=== PATIENT | female | born 1930 | race Caucasian/White ===

== ENCOUNTER 2016-10-15 05:08 | Day surgery (SDC) | payer MEDICARE, OTHER ==
[~2016-10-15 05:08] MED LIST: ASPI-110 PO; ATOR20TA15 PO; FISH500C PO; FORM1POW2 INH; HYDR25TA5 PO; LEVO50TA4 PO; OMEP20CA2 PO; OXYC-432 PO; PRESCAP5 PO; TIOT1AER2 INH; [UNRECOGNIZED DRUG - CODE] PO
[2016-10-15] MEDS ORDERED: CHLORHEXIDINE GLUCONATE 2 % 1 PACK (2 CLOTHS) TOPICAL PRN (05:45)
[2016-10-15] MEDS ORDERED: METOPROLOL TARTRATE 25 MG TAB PO PRN (05:45)
[2016-10-15] MEDS ORDERED: POVIDONE IODINE 5% (ANTISEPSIS KIT) 4 APPLICATIONS EACH NARE PRN (05:45)
[2016-10-15] MEDS ORDERED: INSULIN HUMAN REGULAR 1,000 UNITS/10 ML VIAL SQ PRN (05:45)
[2016-10-15] MEDS ORDERED: SODIUM CHLORID 0.9% 500 ML IV PRN (05:45)
[2016-10-15] MEDS ORDERED: LACTATED RINGER'S 1000 ML IV PRN (05:45)
[2016-10-15 05:51] LABS: BACTERIA, URINE RARE /hpf; BLOOD, URINE SMALL (NEG); COMMENT (UR) CULTURE INDICATED; CULTURE IF INDICATED CULTURE INDICATED; GLUCOSE,URINE NEG (NEG); KETONE, URINE NEG (NEG); MUCUS URINE FEW /lpf (OCC); NITRITE,URINE NEG (NEG); PH, URINE 6.5 (5.0-8.5); RENAL EPITHELIAL CELLS <1 /hpf; SQUAMOUS EPITHELIAL CELL URINE 1 /hpf (0-5); URINE COLOR LIGHT-YELLOW (YELLW/STRAW)
[2016-10-15] MEDS ORDERED: VANCOMYCIN 1000 MG/NS 250 ML (for <70 kg) IV SCH ×2 (06:00)
[2016-10-15] MEDS ORDERED: CHLORHEXIDINE GLUCONATE 4% SOLN 120 ML BTL TOPICAL SCH (06:00)
[2016-10-15] MEDS ORDERED: TRANEXAMIC ACID IV SCH (06:00)
[2016-10-15] MEDS ORDERED: POVIDONE IODINE 7.5% SCRUB 118 ML BOTTLE TOPICAL SCH (06:00)
[2016-10-15] MEDS ORDERED: SODIUM CHLORIDE 0.9% IV SCH (06:00)
[2016-10-15] MEDS ORDERED: ceFAZolin 2 GM PREMIX 50 ML IV SCH (06:00)
[2016-10-15] MEDS ORDERED: ROPIVACAINE PERI-ARTICULAR INJECTION. P-ARTICULR SCH ×5 (06:00)
[2016-10-15] MEDS ORDERED: TRANEXAMIC PERI-ARTICULAR 3,000 MG/NS 100 ML P-ARTICULR SCH ×2 (06:00)
[2016-10-15] MEDS ORDERED: DEXAMETHASONE SOD PHOS 20 MG/5 ML VIAL IV SCH (06:00)
[2016-10-15] MEDS ORDERED: GENTAMICIN SULFATE 80 MG/2 ML VIAL ONE (06:57)
== END 2016-10-15 07:12 | disposition home or self-care (01) ==
LOC: HSDI 05:08 → UNDOADMIN 05:08 → HSDC 05:08 → HSDI 05:08 → EDSTATUS 07:00 → UNDODISIN 07:12 → HSDC 07:12
PROVIDERS: ATTEND Orthopaedic Surgery Sports Medicine
DX: Z53.09 Procedure and treatment not carried out because of other contraindication (principal); M25.562 Pain in left knee; R68.89 Other general symptoms and signs
CPT/HCPCS: 81001; 87086; G0463; J1580; 99211

== ENCOUNTER 2017-02-15 05:11 | Inpatient (IN) | payer OTHER, MEDICARE ==
[~2017-02-15] VITALS: Ht 154.9 cm; Wt 65.0 kg
[~2017-02-15 05:11] MED LIST changes: +CALC1TAB87 PO; -FISH500C PO; +GABA600T PO; +GLUC15002 PO; +MULT-65 PO; -PRESCAP5 PO
[2017-02-15] MEDS ORDERED: INSULIN HUMAN REGULAR 1,000 UNITS/10 ML VIAL SQ PRN (05:45)
[2017-02-15] MEDS ORDERED: CHLORHEXIDINE GLUCONATE 2 % 1 PACK (2 CLOTHS) TOPICAL PRN (05:45)
[2017-02-15] MEDS ORDERED: POVIDONE IODINE 5% (ANTISEPSIS KIT) 4 APPLICATIONS EACH NARE PRN (05:45)
[2017-02-15] MEDS ORDERED: VANCOMYCIN 1000 MG/NS 250 ML (for <70 kg) IV SCH ×2 (05:45)
[2017-02-15] MEDS ORDERED: POVIDONE IODINE 7.5% SCRUB 118 ML BOTTLE TOPICAL SCH (05:45)
[2017-02-15] MEDS ORDERED: DEXAMETHASONE SOD PHOS 20 MG/5 ML VIAL IV SCH (05:45)
[2017-02-15] MEDS ORDERED: CHLORHEXIDINE GLUCONATE 4% SOLN 120 ML BTL TOPICAL SCH (05:45)
[2017-02-15] MEDS ORDERED: SODIUM CHLORID 0.9% 500 ML IV PRN (05:45)
[2017-02-15] MEDS ORDERED: LACTATED RINGER'S 1000 ML IV PRN (05:45)
[2017-02-15] MEDS ORDERED: METOPROLOL TARTRATE 25 MG TAB PO PRN (05:45)
[2017-02-15] MEDS ORDERED: ceFAZolin 2 GM PREMIX 50 ML IV SCH (05:45)
[2017-02-15] MEDS ORDERED: TRANEXAMIC PERI-ARTICULAR 3,000 MG/NS 100 ML P-ARTICULR SCH ×2 (06:00)
[2017-02-15] MEDS ORDERED: TRANEXAMIC ACID IV SCH (06:00)
[2017-02-15] MEDS ORDERED: SODIUM CHLORIDE 0.9% IV SCH (06:00)
[2017-02-15] MEDS ORDERED: ROPIVACAINE PERI-ARTICULAR INJECTION. P-ARTICULR SCH ×5 (06:00)
[2017-02-15] MEDS ORDERED: ONDANSETRON HCL 4 MG/2 ML VIAL IVP PRN (07:00)
[2017-02-15] MEDS ORDERED: diphenhydrAMINE HCL 50 MG/ML VIAL IV PRN (07:00)
[2017-02-15] MEDS ORDERED: BISACODYL 10 MG SUPP RECTAL PRN (07:00)
[2017-02-15] MEDS ORDERED: MORPHINE SULFATE 4 MG/ML INJ IV PUSH PRN (07:00)
[2017-02-15] MEDS ORDERED: ZOLPIDEM TARTRATE 5 MG TAB PO PRN (07:00)
[2017-02-15] MEDS ORDERED: SODIUM CHLORIDE 0.9% FLUSH 10 ML FLUSH IV FLUSH PRN (07:00)
[2017-02-15] MEDS ORDERED: HYDR-3288 PO (07:02)
[2017-02-15] MEDS ORDERED: ENOX30P SQ (07:03)
[2017-02-15] MEDS ORDERED: ASPI81CH3 CHEW (07:04)
[2017-02-15] MEDS ORDERED: GENTAMICIN SULFATE 80 MG/2 ML VIAL ONE (07:05)
[2017-02-15] MEDS ORDERED: ACETAMINOPHEN 1000 MG/100 ML 100 ML IV ONE (07:23)
[2017-02-15] MEDS: SODIUM CHLORIDE 0.9% FLUSH 10 ML FLUSH IV FLUSH SCH ×2 (09:00→20:40)
[2017-02-15] MEDS ORDERED: BUPIVACAINE LIPOSOME PF 1.3% 20 ML VIAL ONE (09:57)
[2017-02-15] MEDS ORDERED: Post-op Orders (for Pharmacy) MISC XX ONE (10:20)
[2017-02-15] MEDS ORDERED: DO NOT ADM ANY ANTICOAGULANT DRUGS PRN (10:25)
--- NOTE | 2017-02-15 10:25 | HHI.DCPOC ---
Discharge Care Plan Diagnosis: (1) Total knee replacement status Your Health Problems Are: Difficulty with ADL Goals to Promote Your Health * To prevent worsening of your condition and complications * To maintain your health at the optimal level Directions to Meet Your Goals Take your medications as prescribed Follow your dietary instruction Follow activity as directed Keep your appointments as scheduled Take your immunizations and boosters as scheduled If your symptoms worsen call your PCP, if no PCP go to Urgent Care Center or Emergency Room Smoking is Dangerous to Your Health. Avoid second hand smoke Call the 24-hour hour crisis hotline for domestic abuse at Paul Baxter Feb 15, 2017 10:24
--- NOTE | 2017-02-15 10:25 | HHI.FF ---
Face to Face Verification Diagnosis: (1) Total knee replacement status Physical Therapy Gait training, Safety evaluation, Transfer training, bed to chair Knee: Total knee, Protocol: Left, Full weight bearing Left LE Weight Bearing: WB as tolerated Nursing RN: 3 days/week x 2 weeks Nursing: Kourtney teaching, Dressing changes Dressing Changes: Daily dressing change I have seen patient Mini Busby on 02/15/17. My clinical findings support the need for the requested home health care services because: Limited ability to care for self High risk of falls I certify that my clinical findings support that this patient is homebound because: Post-op weakness Unsteady gait/balance Paul Baxter Feb 15, 2017 10:25
[2017-02-15] MEDS ORDERED: WALKER WHEELS/F1 MIS (10:27)
[2017-02-15] MEDS ORDERED: CPMMACHINE (10:27)
[2017-02-15] MEDS ORDERED: COMMODE 3-IN-11 MIS (10:27)
--- NOTE | 2017-02-15 10:28 | PD.ORT.PN ---
Subjective Subjective Remarks sx Saturday, L TKA Objective Vitals Vital Signs Date Time Temp Pulse Resp B/P (MAP) Pulse Ox O2 Delivery O2 Flow Rate FiO2 02/15/17 09:01 89 187/87 02/15/17 06:19 98.8 69 16 175/75 (108) 96 I/O 02/14/17 02/14/17 02/14/17 02/15/17 02/15/17 02/15/17 06:59 14:59 22:59 06:59 14:59 22:59 Intake Total 1250 ml Output Total 50 ml Balance 1200 ml Other 1250 ml Output Estimated Blood Loss 50 ml Assessment & Plan Ortho Post Op Day #: 0 Problem List: Assessment and Plan s/p L TKA wbat daily dressing changes lovenox d/c planning home vs snf rx in chart [id number] signed f/up dr. rao 2 weeks Paul Baxter Feb 15, 2017 10:28
[2017-02-15] MEDS: SODIUM CHLOR 0.9% 1000 ML INJ 1,000 ML IV SCH ×2 (11:00→21:14)
[2017-02-15] MEDS ORDERED: *ENALAPRILAT 1.25 MG/ML VIAL PERIprocedural Use ONLY ONE (11:01)
--- NOTE | 2017-02-15 11:20 | EKG ---
Date Performed: 02/15/2017 Time Performed: 06:42:13 PTAGE: 87 years EKG: Sinus rhythm WITH FIRST DEGREE AV BLOCK ABNORMAL ECG PREVIOUS TRACING : 10/29/2014 11.55 No significant change from previous tracing noted. DOCTOR: Neo Fish Interpretating Date/Time 02/15/2017 11:19:34
[2017-02-15] MEDS ORDERED: GLYCOPYRROLATE 0.2 MG/ML VIAL IV ONE (12:00)
[2017-02-15] MEDS ORDERED: LACTATED RINGER'S 1000 ML INJ 1,000 ML IV ONE (12:00)
--- NOTE | 2017-02-15 12:03 | RADRPT ---
EXAM DATE/TIME: 02/15/2017 10:39 [place] COMPARISON: No previous studies available for comparison. INDICATIONS : Post operative knee X-Ray. MEDICAL HISTORY : None. SURGICAL HISTORY : None. ENCOUNTER: Initial ACUITY: 1 day PAIN SCORE: 3/10 LOCATION: Left. FINDINGS: AP and lateral views of the knee following arthroplasty reveals a prosthesis in anatomic alignment. F racture is not appreciated. CONCLUSION: Status post total knee arthroplasty. Leighton Tejeda MD FACR Board Certified Radiologist. This report was verified electronically.
[2017-02-15] MEDS ORDERED: *morphine SULFATE 8 MG/ML PERIprocedure ONLY ONE (12:09)
[2017-02-15] MEDS ORDERED: ONDANSETRON HCL 4 MG/2 ML VIAL IV PUSH ONE (12:25)
[2017-02-15] MEDS ORDERED: MIDAZOLAM HCL 2 MG/2 ML VIAL IV ONE (12:25)
[2017-02-15] MEDS ORDERED: NEOSTIGMINE 3 MG/3 ML SYR IV ONE (12:25)
[2017-02-15] MEDS ORDERED: PROPOFOL 200 MG/20 ML AMP IV ONE (12:25)
[2017-02-15 14:05] VITALS: BP 119/56; PULSE 63; RESP 17; TEMP 96.2; O2SAT 94
[2017-02-15 16:00] VITALS: BP 120/84; PULSE 62; RESP 17; TEMP 96.6; O2SAT 95
[2017-02-15] MEDS: ACETAMINOPHEN/HYDROcodone 325 MG/7.5 MG TAB PO PRN (18:52)
--- NOTE | 2017-02-15 19:04 | MP ---
cc: TOM ESQUIVEL DATE OF SURGERY 02/15/2017 PREOPERATIVE DIAGNOSIS Left knee osteoarthritis POSTOPERATIVE DIAGNOSES Left knee osteoarthritis PROCEDURE Left total knee arthroplasty SURGEON Dr. Shahrzad Esquivel RETAIL ASSISTANT MANAGER MADHURI Butcher ANESTHESIA General with a femoral nerve adductor canal block. ESTIMATED BLOOD LOSS 50 mL. TOURNIQUET TIME 40 minutes at 250 mmHg COMPLICATIONS None. IMPLANTS USED DePuy attune size five posterior stabilized femoral component size four, rotating platform tibia baseplate, size 6 mm polyethylene tibial insert, size 35 patella. JUSTIFICATION The patient is an 87-year female with a history of severe end-stage degenerative osteoarthritis involving the left knee. She has severe disabling pain with standing, walking, ambulation and weight bearing activities and severe pain at rest. She has failed greater than three months of nonoperative conservative treatment to include medication therapy, injections, ambulatory assistive aids, and activity modification. The patient is not overweight. X-rays of the left knee reveals severe end-stage osteoarthritis, [id number] joint space narrowing, subchondral sclerosis, subchondral cyst osteophyte formation with varus deformity. The patient was counseled as risks, benefits and alternatives to a total knee arthroplasty. The risks were discussed which include but limited to anesthesia, bleeding, infection, damage to nerves, blood vessels, pain, stiffness, failure of component, blood clots, pulmonary embolism and even . The patient's pain is severe. She favored the benefits over the risks and she did wish to proceed with surgery. PROCEDURE IN DETAIL A written consent was obtained. The patient was identified by name, taken to operating room and placed supine on the operating table. General anesthesia was administered as well as 2 grams of IV Ancef and 1 gram of IV vancomycin. A well-padded tourniquet was placed on left thigh, left lower extremity prepped and draped using isopropyl alcohol, Hibiclens solution and Chloraprep solution. After a time-out was performed, an Esmarch bandage was used to exsanguinate the left lower extremity. A tourniquet was inflated to 250 mmHg. A large incision was made over the anterior aspect of the left knee and medial parapatellar arthrotomy was performed. The patella was everted. Patella resection guide was used to resect 9 mm of patella. The size 35 mm guide was placed. Three drill holes were placed. A 35 mm trial fit well. Attention was turned to the femur where an intramedullary guide was placed and the distal femoral guide was set to remove 10 mm of distal femur, 5 degrees off the anatomic valgus axis alignment. Oscillating saw was used to perform the distal femoral cut. Attention was turned to the tibia where an extramedullary tibial guide was set to remove 5 mm off the lowest portion of medial tibial plateau. The tibia guide was pinned in place and tibia cut was performed. A 5 mm spacer block showed full extension. Attention was turned back to the femur. AP sizing block measured a size five. The anterior reference 33 external rotation guide was used to pin a size five block [address]. The anterior posterior chamfer cuts were performed. A size five PCL box guide was pinned in place. PCL was boxed in with an oscillating saw. The medial lateral meniscus remnants were removed as well as bone and soft tissue debris from posterior portion of the knee. A size four tibia base was pinned in place. Tibia was drilled and punched. Trial components were evaluated and final components cemented in place. Current components showed full extension at 0 degrees, flexion 140, no evidence of tibial lift-off. Varus-valgus balance appeared appropriate and symmetric and the patella was noted to track centrally. Tourniquet was deflated. Bovie cautery was used for hemostasis. The arthrotomy incision was closed with #1 Vicryl suture.. subcutaneous layer with 2-0 Vicryl suture. Skin was closed with Dermabond. Sterile dressing applied. The patient tolerated procedure well. No intraoperative complications noted. Russell Baxter physician insurance underwriting assistant certified was present during that the entire procedure to include patient positioning and the procedure itself. The medical necessity of a physician insurance underwriting assistant was indicated in this case due to the complexity of t he procedure. He assisted with appropriate manipulation of the leg and also traction of muscle, tendon, bone and neurovascular structures. He assisted with preparation of bone, also implantation of the prosthetic __. MD MATIAS Gairbay/ /9:54 AM /6:45 PM
[2017-02-15 20:05] VITALS: BP 139/64; PULSE 68; RESP 17; TEMP 97; O2SAT 95
[2017-02-15] MEDS: ENOXAPARIN SODIUM 30 MG/0.3 ML SYRINGE SQ SCH (22:34)
--- NOTE | 2017-02-15 22:40 | PD.CONS ---
HPI Service [facility] . Consult Requested By Dr. Garcia . Reason for Consult Medical management of COPD and hypertension . Primary Care Physician Kevin Quevedo MD . Diagnoses: (1) COPD (chronic obstructive pulmonary disease) (2) Hypertension (3) Total knee replacement status History of Present Illness Ms. Busby is a very pleasant 87-year-old female with a history of COPD, hypertension, osteoarthritis, Reyes's esophagus, gastroesophageal reflux disease, and hyperlipidemia who presented to the hospital for elective left total knee arthroplasty by Dr. Garcia on 02/15/2017. The patient reports being severe, throbbing left knee pain for the past year that has become progressively worsened despite outpatient treatment. She is seen in her hospital room on evening of operation. She denies any shortness of breath and states that her pain is currently well managed on the current regimen of analgesics. She denies any recent fever, chills, illness, nausea, vomiting, diarrhea, chest pain, or dysuria. Review of Systems Except as stated in HPI: all other systems reviewed are Neg Past Family Social History Allergies: Coded Allergies: No Known Allergies (Verified , 02/15/17) Past Medical History Left knee osteoarthritis COPD - follows with Dr. Camacho as an outpatient Reyes's esophagus Gastroesophageal reflux disease Hypertension Bilateral cataracts Hyperlipidemia Osteoarthritis . Past Surgical History Left hip VANI a 10/30/[address] Denise Left rotator cuff repair . Reported Medications Reported Meds & Active Scripts Active Aspirin 81 Low Dose (Aspirin) 81 Mg Chew 81 Mg CHEW BID Lovenox Inj (Enoxaparin Sodium) 30 Mg/0.3 Ml Syr 30 Mg SQ DAILY Mutual (Hydrocodone-Acetaminophen) 7.5-325 mg Tab 1-2 Tab PO Q6H PRN Reported Multi-Vitamin Daily (Multiple Vitamin) 1 Tab Tab 1 Tab PO DAILY Calcium 600 with Vitamin D (Calcium Carbonate-Cholecalciferol) 600-400 mg-Unit Tab 1 Tab PO DAILY Glucosamine 1500 Complex (Benyvopucxz-Yjhnzbdokhr-Wzq C-) 500 Mg-400 Mg Cap 3 Tab PO DAILY Gabapentin 600 Mg Tab 600 Mg PO BID Formoterol Fumarate Dihydrate 1 Pow Pow 12 Mcg INH DAILY Oxycodone-Acetaminophen 5-325 mg Tab 1 Tab PO TID PRN Spiriva Respimat Inh (Tiotropium Inh) 1.25 Mcg/Act Aero 1 Puff INH DAILY 1.25 mcg = 1 inhalation Atorvastatin (Atorvastatin Calcium) 20 Mg Tab 20 Mg PO DAILY Levothyroxine (Levothyroxine Sodium) 50 Mcg Tab 50 Mcg PO DAILY Omeprazole 20 Mg Cap 1 Cap PO DAILY Aspirin 81 (Aspirin) 81 Mg Tabdr 81 Mg PO DAILY Hydrochlorothiazide 25 Mg Tab 25 Mg PO DAILY Taztia Xt (Diltiazem ER 24 HR) 120 Mg Caper 120 Mg PO DAILY . Active Ordered Medications Current Medications Dexamethasone Sodium Phosphate (Decadron Inj) 10 mg METHODS STUDY ANALYST IV Last administered on 02/15/17 06:25; Start 02/15/17 at 05:45; Stop 02/15/17 at 18:00; Status DC Povidone Iodine (Betadine 7.5% Scrub) 1 applic ONCE TOPICAL Last administered on 02/15/17 06:00; Start 02/15/17 at 05:45; Stop 02/18/17 at 05:44 Chlorhexidine Gluconate (Hibiclens 4% Top Soln) 1 applic ONCE TOPICAL ; Start at 05:45; Stop 02/18/17 at 05:44 Cefazolin Sodium/ Dextrose 50 ml @ 100 mls/hr METHODS STUDY ANALYST IV Last administered on 02/15/17 07:40; Start 02/15/17 at 05:45; Stop 02/15/17 at 10:59; Status DC Vancomycin HCl 1000 mg/Sodium Chloride 250 ml @ 250 mls/hr METHODS STUDY ANALYST IV Last administered on 02/15/17 07:40; Start 02/15/17 at 05:45; Stop 02/18/17 at 05:44 Tranexamic Acid 942 mg/Sodium Chloride 109.42 ml @ 200 mls/ hr ONCE IV Last administered on 02/15/17 08:45; Start 02/15/17 at 06:00; Stop 02/15/17 at 12:00; Status DC Ropivacaine 24.63 ml/Ketorolac Tromethamine 30 mg/Epinephrine HCl 0.5 mg/ Clonidine 80 mcg/ Sodium Chloride 100 ml @ 200 mls/hr ONCE P-ARTICULR Last administered on 02/15/17 09:01; Start 02/15/17 at 06:00; Stop 02/15/17 at 12:00; Status DC Tranexamic Acid 3000 mg/Sodium Chloride 130 ml @ 260 mls/hr ONCE P-ARTICULR Last administered on 02/15/17 09:01; Start 02/15/17 at 06:00; Stop 02/15/17 at 12: 00; Status DC Lactated Ringer's 1,000 ml @ 30 mls/hr Q24H PRN IV SEE LABEL COMMENTS Last administered on 02/15/17 06:31; Start 02/15/17 at 05:45; Stop 02/18/17 at 05:44 Sodium Chloride 500 ml @ 30 mls/hr [id number] PRN IV SEE LABEL COMMENTS; Start 02/15/17 at 05:45; Stop 02/18/17 at 05:44 Metoprolol Tartrate (Lopressor) 25 mg METHODS STUDY ANALYST PRN PO SEE LABEL COMMENTS; Start 02/15/17 at 05:45; Stop 02/18/17 at 05:44 Povidone Iodine (Betadine 5% Antisepsis Kit) 1 applic METHODS STUDY ANALYST PRN EACH NARE SEE LABEL COMMENTS Last administered on 02/15/17 06:00; Start 02/15/17 at 05:45; Stop 02/18/17 at 05:44 Chlorhexidine Gluconate (Chlorhexidine 2% Cloth) 3 pack METHODS STUDY ANALYST PRN TOPICAL SEE LABEL COMMENTS Last administered on 02/15/17 06:10; Start 02/15/17 at 05:45; Stop 02/18/17 at 05:44 Insulin Human Regular (NovoLIN R INJ) See Protocol Table ... METHODS STUDY ANALYST PRN SQ SEE PROTOCOL TABLE; Start 02/15/17 at 05:45; Stop 02/18/17 at 05:44 Sodium Chloride 1,000 ml @ 100 mls/hr Q10H IV Last administered on 02/15/17 11 :00; Start 02/15/17 at 11:00 Sodium Chloride (NS Flush) 2 ml UNSCH PRN IV FLUSH FLUSH AFTER USING IV ACCESS ; Start 02/15/17 at 07:00 Sodium Chloride (NS Flush) 2 ml BID IV FLUSH ; Start 02/15/17 at 09:00 Cefazolin Sodium 1000 mg/Sodium Chloride 100 ml @ 200 mls/hr Q6H IV Last administered on 02/15/17 20:40; Start 02/15/17 at 14:00; Stop 02/16/17 at 02:29 Miscellaneous Information (Post-op Orders (for Pharmacy)) STAT ONCE XX ; Start 02/15/17 at 10:20; Stop 02/15/17 at 10:55; Status DC Enoxaparin Sodium (Lovenox Inj) 30 mg Q24H SQ Last administered on 02/15/17 22: 34; Start 02/15/17 at 22:00 Morphine Sulfate (Morphine Inj) 3 mg Q3H PRN IV PUSH Pain >7 when off TELEPHONE OPERATOR CHIEF Last administered on 02/15/17 15:09; Start 02/15/17 at 07:00 Acetaminophen/ Hydrocodone Bitart (Mutual 7.5-325 Mg) 1 tab Q4H PRN PO PAIN LESS THAN 5 ON SCALE Last administered on 02/15/17 18:52; Start 02/15/17 at 07:00 Acetaminophen/ Hydrocodone Bitart (Mutual 7.5-325 Mg) 2 tab Q4H PRN PO PAIN SCALE 5 TO 10; Start 02/15/17 at 07:00 Multivitamins/ Minerals Therapeutic (Theragran M Tab) 1 tab BID PO ; Start at 21:00; Stop 04/17/17 at 20:59 Ondansetron HCl (Zofran Inj) 4 mg Q6H PRN IVP NAUSEA OR VOMITING; Start at 07:00 Docusate Sodium (Colace) 100 mg BID PO ; Start 02/16/17 at 21:00 Zolpidem Tartrate (Ambien) 5 mg HS PRN PO SLEEP; Start 02/15/17 at 07:00 Bisacodyl (Dulcolax Supp) 10 mg DAILY PRN RECTAL CONSTIPATION; Start 02/15/17 at 07:00 Diphenhydramine HCl (Benadryl Inj) 25 mg Q6H PRN IV ITCHING; Start 02/15/17 at 07:00 Gentamicin Sulfate (Gentamicin Inj) 240 mg STK-MED ONCE .ROUTE Last administered on 02/15/17 09:01; Start 02/15/17 at 07:05; Stop 02/15/17 at 07:06; Status DC Acetaminophen 100 ml @ As Directed STK-MED ONCE IV ; Start 02/15/17 at 07:23; Stop 02/15/17 at 07:24; Status DC Enalaprilat (*VASOTEC INJ PERIprocedural Use ONLY) 1.25 mg STK-MED ONCE .ROUTE Last administered on 02/15/17t 11:01; Start 02/15/17 at 11:01; Stop 02/15/17 at 11: 02; Status DC Morphine Sulfate (*morphine INJ PERIprocedure ONLY) 8 mg STK-MED ONCE .ROUTE Last administered on 02/15/17 12:07; Start 02/15/17 at 12:09; Stop 02/15/17 at 12: 10; Status DC Miscellaneous Information ALL NURSING DEPARTME... UNSCH PRN .XX SEE LABEL COMMENTS; Start 02/15/17 at 10:25; Stop 02/16/17 at 10:24 Albuterol/ Ipratropium (Duoneb Neb) 1 ampule Q4HR NEB PRN NEB WHEEZING/SOB; Start 02/16/17 at 00:00 . Family History Father with CVA and age 88 Mother age 66 of unknown illness . Social History Tobacco: Quit 35 years ago after smoking one quarter pack per day for 40 years Alcohol: Denies . Physical Exam Vital Signs Vital Signs Date Time Temp Pulse Resp B/P (MAP) Pulse Ox O2 Delivery O2 Flow Rate FiO2 02/15/17 20:05 97.0 68 17 139/64 (89) 95 02/15/17 16:00 96.6 62 17 120/84 (96) 95 02/15/17 14:05 96.2 63 17 119/56 (77) 94 02/15/17 13:25 97.5 62 16 134/65 (88) 95 Nasal Cannula 2 02/15/17 13:00 62 16 133/62 (85) 95 Nasal Cannula 2 02/15/17 12:30 63 16 141/68 (92) 95 Nasal Cannula 2 02/15/17 12:26 14 02/15/17 12:00 62 16 150/69 (96) 94 Nasal Cannula 2 02/15/17 11:45 61 15 158/68 (98) 94 Nasal Cannula 2 02/15/17 11:30 62 15 160/69 (99) 93 Nasal Cannula 2 02/15/17 11:15 60 15 162/71 (101) 93 Nasal Cannula 2 02/15/17 11:00 63 15 181/83 (115) 94 Nasal Cannula 2 02/15/17 10:45 62 15 176/80 (112) 94 Nasal Cannula 2 02/15/17 10:30 63 15 172/73 (106) 100 Nasal Cannula 3 02/15/17 10:25 97.6 64 20 169/72 (104) 99 Nasal Cannula 3 02/15/17 09:01 89 187/87 02/15/17 06:19 98.8 69 16 175/75 (108) 96 Physical Exam GENERAL: This is a pleasant well-nourished, well-developed patient, in no apparent distress. SKIN: No rashes, ecchymoses or lesions. Cool and dry. HEAD: Atraumatic. Normocephalic. EYES: No scleral icterus. No injection or drainage. ENT: Nose without bleeding, purulent drainage. NECK: Trachea midline. No JVD. CARDIOVASCULAR: Regular rate and rhythm without murmurs, gallops, or rubs. RESPIRATORY: Clear to auscultation. Breath sounds diminished at bases but equal bilaterally. No wheezes, rales, or rhonchi. GASTROINTESTINAL: Abdomen soft, non-tender, nondistended. No guarding. MUSCULOSKELETAL: Extremities without clubbing, cyanosis, or edema. SCDs in place. NEUROLOGICAL: Awake and alert. Motor and sensory grossly within normal limits. Normal speech. . Assessment and Plan Problem List: (1) COPD (chronic obstructive pulmonary disease) ICD Code: J44.9 - Chronic obstructive pulmonary disease, unspecified Status: Chronic (2) Hypertension ICD Code: I10 - Essential (primary) hypertension Status: Chronic (3) Total knee replacement status ICD Code: Z96.659 - Presence of unspecified artificial knee joint (4) GERD (gastroesophageal reflux disease) ICD Code: K21.9 - Gastro-esophageal reflux disease without esophagitis Status: Chronic (5) Hyperlipidemia ICD Code: E78.5 - Hyperlipidemia, unspecified Status: Chronic Assessment and Plan 87y/o s/p L TKA for left knee osteoarthritis: COPD - Resume home medications - will add Duo nebulizers every 4 hours when necessary for shortness of breath/ wheezing - Incentive spirometry to prevent atelectasis/pneumonia - supplemental oxygen titrated to maintain oxygen saturation > 92% - If any significant respiratory decompensation, consider consulting patient's forensic identification specialist Dr. Camacho Hypertension - Resume home medications - Monitor trends in blood pressure readings and adjust therapy if needed Hyperlipidemia - Resume home medications GERD - resume home medications Status post left total knee arthroplasty - Management per Dr. Garcia - Analgesic regimen effective per patient DVT prophylaxis - Bilateral SCDs - Lovenox 30 mg every 24 hours subcutaneously . Discussed Condition With patient and RN Problem Qualifiers (1) Total knee replacement status: Qualified Codes: Z96.652 - Presence of left artificial knee joint Suri Goodrich Feb 15, 2017 22:40
[2017-02-16] VITALS (7 sets, daily range): BP systolic 146–179; BP diastolic 65–75; PULSE 62–81; RESP 16–20; TEMP 95.6–99; O2SAT 92–96
[2017-02-16] MEDS ORDERED: RESP: ALBUTEROL 2.5 MG/IPRATROPIUM 0.5 MG NEB (PRN) NEB
[2017-02-16] MEDS: GABAPENTIN 300 MG CAP PO SCH ×3 (01:25→19:36)
[2017-02-16] MEDS: ACETAMINOPHEN/HYDROcodone 325 MG/7.5 MG TAB PO PRN ×5 (01:26→19:40)
[2017-02-16] MEDS: LEVOTHYROXINE SODIUM 50 MCG TAB PO SCH (05:53)
[2017-02-16] MEDS ORDERED: [UNRECOGNIZED DRUG - OTHER] INH SCH (09:00)
[2017-02-16] MEDS: SODIUM CHLORIDE 0.9% FLUSH 10 ML FLUSH IV FLUSH SCH ×2 (09:00→19:42)
--- NOTE | 2017-02-16 09:04 | HHI.PR ---
Subjective Remarks Complaints of constipation. No n/v. No fever or chills. Pain is controlled by meds. No sob or wheezing. No cough. Objective Vitals Vital Signs Date Time Temp Pulse Resp B/P (MAP) Pulse Ox O2 Delivery O2 Flow Rate FiO2 02/16/17 04:00 97.6 64 16 150/65 (93) 96 02/16/17 00:00 97.3 62 16 146/67 (93) 94 02/15/17 20:05 97.0 68 17 139/64 (89) 95 02/15/17 16:00 96.6 62 17 120/84 (96) 95 02/15/17 14:05 96.2 63 17 119/56 (77) 94 02/15/17 13:25 97.5 62 16 134/65 (88) 95 Nasal Cannula 2 02/15/17 13:00 62 16 133/62 (85) 95 Nasal Cannula 2 02/15/17 12:30 63 16 141/68 (92) 95 Nasal Cannula 2 02/15/17 12:26 14 02/15/17 12:00 62 16 150/69 (96) 94 Nasal Cannula 2 02/15/17 11:45 61 15 158/68 (98) 94 Nasal Cannula 2 02/15/17 11:30 62 15 160/69 (99) 93 Nasal Cannula 2 02/15/17 11:15 60 15 162/71 (101) 93 Nasal Cannula 2 02/15/17 11:00 63 15 181/83 (115) 94 Nasal Cannula 2 02/15/17 10:45 62 15 176/80 (112) 94 Nasal Cannula 2 02/15/17 10:30 63 15 172/73 (106) 100 Nasal Cannula 3 02/15/17 10:25 97.6 64 20 169/72 (104) 99 Nasal Cannula 3 I/O 02/15/17 02/15/17 02/15/17 02/16/17 02/16/17 02/16/17 07:00 15:00 23:00 07:00 15:00 23:00 Intake Total 1730 ml 1294 ml 480 ml Output Total 525 ml 300 ml 600 ml Balance 1205 ml 994 ml -120 ml Intake Oral 480 ml 600 ml 480 ml IV Total 694 ml Other 1250 ml Output Urine Total 475 ml 300 ml 600 ml Estimated Blood Loss 50 ml # Voids 0 # Bowel Movements 0 Imaging Last Impressions Knee X-Ray 02/15/17 0700 Signed Impressions: Service Date/Time: Wednesday, February 15, 2017 10:39 - CONCLUSION: Status post total knee arthroplasty. Leighton Tejeda MD Objective Remarks GENERAL: This is a pleasant well-nourished, well-developed patient, in no apparent distress. SKIN: No rashes, ecchymoses or lesions. Cool and dry. HEAD: Atraumatic. Normocephalic. EYES: No scleral icterus. No injection or drainage. ENT: Nose without bleeding, purulent drainage. NECK: Trachea midline. No JVD. CARDIOVASCULAR: Regular rate and rhythm without murmurs, gallops, or rubs. RESPIRATORY: Clear to auscultation. Breath sounds diminished at bases but equal bilaterally. No wheezes, rales, or rhonchi. GASTROINTESTINAL: Abdomen soft, non-tender, nondistended. No guarding. MUSCULOSKELETAL: Extremities without clubbing, cyanosis, or edema. SCDs in place. NEUROLOGICAL: Awake and alert. Motor and sensory grossly within normal limits. Normal speech. A/P Problem List: (1) COPD (chronic obstructive pulmonary disease) ICD Code: J44.9 - Chronic obstructive pulmonary disease, unspecified Status: Chronic (2) Hypertension ICD Code: I10 - Essential (primary) hypertension Status: Chronic (3) Total knee replacement status ICD Code: Z96.659 - Presence of unspecified artificial knee joint (4) GERD (gastroesophageal reflux disease) ICD Code: K21.9 - Gastro-esophageal reflux disease without esophagitis Status: Chronic (5) Hyperlipidemia ICD Code: E78.5 - Hyperlipidemia, unspecified Status: Chronic Assessment and Plan 87y/o s/p L TKA for left knee osteoarthritis: COPD without exacerbation Resume home medications Duo nebulizers every 4 hours when necessary for shortness of breath/wheezing Incentive spirometry to prevent atelectasis/pneumonia Supplemental oxygen titrated to maintain oxygen saturation > 92% If any significant respiratory decompensation, consider consulting patient's tank inspector Dr. Camacho Hypertension Resume home medications Monitor trends in blood pressure readings and adjust therapy if needed Hyperlipidemia Resume home medications GERD resume home medications Constipation . Bowel regimen. Add MOM and lactulose as need for moderate to severe constipation Status post left total knee arthroplasty Management per Dr. Garcia Analgesic regimen effective per patient DVT prophylaxis Bilateral SCDs Lovenox 30 mg every 24 hours subcutaneously Discussed Condition With patient, nurse Problem Qualifiers (1) Total knee replacement status: Qualified Codes: Z96.652 - Presence of left artificial knee joint Terese Mendez MD Feb 16, 2017 09:04
[2017-02-16] MEDS: ATORVASTATIN 20 MG TAB PO SCH (09:06)
[2017-02-16] MEDS: PANTOPRAZOLE SOD 20 MG DELAYED RELEASE TAB PO SCH (09:06)
[2017-02-16] MEDS: HYDROCHLOROTHIAZIDE 25 MG TAB PO SCH (09:06)
[2017-02-16] MEDS: DILTIAZEM-CD 120 MG CAP ER PO SCH (09:06)
[2017-02-16] MEDS: TIOTROPIUM BROMIDE 18 MCG INH INH SCH (09:10)
[2017-02-16] MEDS: SODIUM CHLOR 0.9% 1000 ML INJ 1,000 ML IV SCH ×3 (09:14→22:36)
[2017-02-16 10:11] LABS: HEMATOCRIT 33.3 % (35.0-46.0); MEAN CELL VOLUME 86.5 FL (80.0-100.0); MEAN CORPUSCULAR HEMOGLOBIN 27.7 PG (27.0-34.0); PLATELET COUNT 150 TH/MM3 (150-450); RED BLOOD COUNT 3.85 MIL/MM3 (4.00-5.30); RED CELL DISTRIBUTION WIDTH 14.4 % (11.6-17.2); REVIEW FLAG FINAL
[2017-02-16 10:39] LABS: BICARBONATE 25.7 MEQ/L (21.0-32.0); POTASSIUM 3.9 MEQ/L (3.5-5.1)
--- NOTE | 2017-02-16 12:35 | PD.ORT.PN ---
Subjective Subjective Remarks Patient comfortable Objective Vitals Vital Signs Date Time Temp Pulse Resp B/P (MAP) Pulse Ox O2 Delivery O2 Flow Rate FiO2 02/16/17 08:00 95.8 66 18 154/65 (94) 92 02/16/17 04:00 97.6 64 16 150/65 (93) 96 02/16/17 00:00 97.3 62 16 146/67 (93) 94 02/15/17 20:05 97.0 68 17 139/64 (89) 95 02/15/17 16:00 96.6 62 17 120/84 (96) 95 02/15/17 14:05 96.2 63 17 119/56 (77) 94 02/15/17 13:25 97.5 62 16 134/65 (88) 95 Nasal Cannula 2 02/15/17 13:00 62 16 133/62 (85) 95 Nasal Cannula 2 I/O 02/15/17 02/15/17 02/15/17 02/16/17 02/16/17 02/16/17 07:00 15:00 23:00 07:00 15:00 23:00 Intake Total 1730 ml 1294 ml 480 ml Output Total 525 ml 300 ml 600 ml Balance 1205 ml 994 ml -120 ml Intake Oral 480 ml 600 ml 480 ml IV Total 694 ml Other 1250 ml Output Urine Total 475 ml 300 ml 600 ml Estimated Blood Loss 50 ml # Voids 0 # Bowel Movements 0 Result Diagram: 02/16/1792502/16/17925 Objective Remarks Left lower extremity Splint in place Calves soft NVI Assessment & Plan Assessment and Plan s/p L TKA POD#1 wbat daily dressing changes lovenox d/c planning - snf rx in chart 3008 signed f/up dr. rao 2 weeks Kendall Gipson MD Feb 16, 2017 12:35
[2017-02-16] MEDS ORDERED: MAGNESIUM HYDROXIDE SUSP 30 ML CUP PO PRN (16:30)
[2017-02-16] MEDS: MULTIVITAMINS/MINERALS THERAPEUTIC TAB PO SCH (19:36)
[2017-02-16] MEDS: DOCUSATE SODIUM 100 MG CAP PO SCH (19:36)
[2017-02-16] MEDS: ENOXAPARIN SODIUM 30 MG/0.3 ML SYRINGE SQ SCH (22:33)
[2017-02-17] VITALS (7 sets, daily range): BP systolic 134–189; BP diastolic 61–77; PULSE 78–85; RESP 17–18; TEMP 96.8–100.5; O2SAT 92–97
[2017-02-17] MEDS: LEVOTHYROXINE SODIUM 50 MCG TAB PO SCH (06:22)
[2017-02-17] MEDS: ACETAMINOPHEN/HYDROcodone 325 MG/7.5 MG TAB PO PRN ×3 (06:23→22:57)
[2017-02-17 08:05] LABS: HEMATOCRIT 33.3 % (35.0-46.0); MEAN CELL VOLUME 85.1 FL (80.0-100.0); MEAN CORPUSCULAR HEMOGLOBIN 27.8 PG (27.0-34.0); MEAN CORPUSCULAR HGB CONC 32.6 % (32.0-36.0); PLATELET COUNT 135 TH/MM3 (150-450); RED BLOOD COUNT 3.91 MIL/MM3 (4.00-5.30); RED CELL DISTRIBUTION WIDTH 14.3 % (11.6-17.2); REVIEW FLAG FINAL; WHITE BLOOD COUNT 5.9 TH/MM3 (4.0-11.0)
[2017-02-17 08:38] LABS: BICARBONATE 26.5 MEQ/L (21.0-32.0); POTASSIUM 3.7 MEQ/L (3.5-5.1)
[2017-02-17] MEDS: PANTOPRAZOLE SOD 20 MG DELAYED RELEASE TAB PO SCH (09:11)
[2017-02-17] MEDS: DOCUSATE SODIUM 100 MG CAP PO SCH ×2 (09:11→22:58)
[2017-02-17] MEDS: ATORVASTATIN 20 MG TAB PO SCH (09:11)
[2017-02-17] MEDS: MULTIVITAMINS/MINERALS THERAPEUTIC TAB PO SCH ×2 (09:11→22:56)
[2017-02-17] MEDS: HYDROCHLOROTHIAZIDE 25 MG TAB PO SCH (09:11)
[2017-02-17] MEDS: DILTIAZEM-CD 120 MG CAP ER PO SCH (09:11)
[2017-02-17] MEDS: GABAPENTIN 300 MG CAP PO SCH ×2 (09:11→22:55)
[2017-02-17] MEDS: SODIUM CHLORIDE 0.9% FLUSH 10 ML FLUSH IV FLUSH SCH ×2 (09:12→23:00)
[2017-02-17] MEDS: TIOTROPIUM BROMIDE 18 MCG INH INH SCH (09:12)
--- NOTE | 2017-02-17 09:47 | PD.ORT.PN ---
Subjective Subjective Remarks Patient comfortable. Pain controlled. Objective Vitals Vital Signs Date Time Temp Pulse Resp B/P (MAP) Pulse Ox O2 Delivery O2 Flow Rate FiO2 02/17/17 08:00 97.8 81 18 189/77 (114) 94 02/17/17 04:10 97.0 85 17 134/65 (88) 94 02/17/17 00:05 97.6 80 17 147/61 (89) 93 02/16/17 20:40 18 02/16/17 19:35 99.0 81 17 167/75 (105) 96 02/16/17 16:00 97.1 73 18 153/75 (101) 94 02/16/17 12:25 96 Nasal Cannula 2.00 02/16/17 12:00 95.6 67 20 179/66 (103) 93 I/O 02/16/17 02/16/17 02/16/17 02/17/17 02/17/17 02/17/17 07:00 15:00 23:00 07:00 15:00 23:00 Intake Total 480 ml 940 ml 1157 ml 480 ml Output Total 600 ml 1200 ml Balance -120 ml -260 ml 1157 ml 480 ml Intake Oral 480 ml 840 ml 240 ml 480 ml IV Total 100 ml 917 ml Output Urine Total 600 ml 1200 ml # Voids 4 3 4 # Bowel Movements 0 0 Result Diagram: 02/17/1736 02/17/1736 Objective Remarks Left lower extremity knee immobilizer in place Calves soft NVI Assessment & Plan Assessment and Plan s/p L TKA POD#3 physical therapy - wbat daily dressing changes lovenox d/c planning - snf rx in chart 3000 signed f/up dr. rao 2 weeks Wil Collazo Feb 17, 2017 09:47
[2017-02-17] MEDS: SODIUM CHLOR 0.9% 1000 ML INJ 1,000 ML IV SCH ×2 (13:00→23:00)
--- NOTE | 2017-02-17 14:10 | HHI.PR ---
Subjective Remarks Had a large BM in the morning, constipation resolved. Pain is controlle dby meds. eating well. No n/v/d/c. She is sob , currently on NC, no wheezing. No cough, fever or chills. Objective Vitals Vital Signs Date Time Temp Pulse Resp B/P (MAP) Pulse Ox O2 Delivery O2 Flow Rate FiO2 02/17/17 12:00 96.8 78 18 142/68 (92) 97 02/17/17 08:00 97.8 81 18 189/77 (114) 94 02/17/17 04:10 97.0 85 17 134/65 (88) 94 02/17/17 00:05 97.6 80 17 147/61 (89) 93 02/16/17 20:40 18 02/16/17 19:35 99.0 81 17 167/75 (105) 96 02/16/17 16:00 97.1 73 18 153/75 (101) 94 I/O 02/16/17 02/16/17 02/16/17 02/17/17 02/17/17 02/17/17 06:59 14:59 22:59 06:59 14:59 22:59 Intake Total 480 ml 100 ml 1997 ml 480 ml Output Total 600 ml 1200 ml Balance -120 ml 100 ml 797 ml 480 ml Intake Oral 480 ml 1080 ml 480 ml IV Total 100 ml 917 ml Output Urine Total 600 ml 1200 ml # Voids 7 4 # Bowel Movements 0 0 Result Diagram: 02/17/17 0736 02/17/17 0736 Imaging Last Impressions Knee X-Ray 02/15/17 0700 Signed Impressions: Service Date/Time: Wednesday, February 15, 2017 10:39 - CONCLUSION: Status post total knee arthroplasty. Leighton Tejeda MD Objective Remarks GENERAL: This is a pleasant well-nourished, well-developed patient, in no apparent distress. SKIN: No rashes, ecchymoses or lesions. Cool and dry. HEAD: Atraumatic. Normocephalic. EYES: No scleral icterus. No injection or drainage. ENT: Nose without bleeding, purulent drainage. NECK: Trachea midline. No JVD. CARDIOVASCULAR: Regular rate and rhythm without murmurs, gallops, or rubs. RESPIRATORY: Clear to auscultation. Breath sounds diminished at bases but equal bilaterally. No wheezes, rales, or rhonchi. GASTROINTESTINAL: Abdomen soft, non-tender, nondistended. No guarding. MUSCULOSKELETAL: Extremities without clubbing, cyanosis, or edema. SCDs in place. NEUROLOGICAL: Awake and alert. Motor and sensory grossly within normal limits. Normal speech. A/P Problem List: (1) COPD (chronic obstructive pulmonary disease) ICD Code: J44.9 - Chronic obstructive pulmonary disease, unspecified Status: Chronic (2) Hypertension ICD Code: I10 - Essential (primary) hypertension Status: Chronic (3) Total knee replacement status ICD Code: Z96.659 - Presence of unspecified artificial knee joint (4) GERD (gastroesophageal reflux disease) ICD Code: K21.9 - Gastro-esophageal reflux disease without esophagitis Status: Chronic (5) Hyperlipidemia ICD Code: E78.5 - Hyperlipidemia, unspecified Status: Chronic Assessment and Plan 87y/o s/p L TKA for left knee osteoarthritis: COPD without exacerbation Resume home medications Duo nebulizers every 4 hours when necessary for shortness of breath/wheezing Incentive spirometry to prevent atelectasis/pneumonia Supplemental oxygen titrated to maintain oxygen saturation > 92% If any significant respiratory decompensation, consider consulting patient's dredge lever operator Dr. Camacho Hypertension Resume home medications Monitor trends in blood pressure readings and adjust therapy if needed Hyperlipidemia Resume home medications GERD resume home medications Constipation. Resolved. Continue bowel regimen. MOM and lactulose as need for moderate to severe constipation. Status post left total knee arthroplasty Management per Dr. Garcia Analgesic regimen effective per patient DVT prophylaxis Bilateral SCDs Lovenox 30 mg every 24 hours subcutaneously Discussed Condition With patient, nurse Problem Qualifiers (1) Total knee replacement status: Qualified Codes: Z96.652 - Presence of left artificial knee joint Terese Mendez MD Feb 17, 2017 14:10
[2017-02-17] MEDS: ENOXAPARIN SODIUM 30 MG/0.3 ML SYRINGE SQ SCH (22:59)
[2017-02-18 06:05] LABS: HEMATOCRIT 31.4 % (35.0-46.0); MEAN CELL VOLUME 86.2 FL (80.0-100.0); MEAN CORPUSCULAR HEMOGLOBIN 28.4 PG (27.0-34.0); PLATELET COUNT 137 TH/MM3 (150-450); RED BLOOD COUNT 3.64 MIL/MM3 (4.00-5.30); RED CELL DISTRIBUTION WIDTH 14.3 % (11.6-17.2); REVIEW FLAG FINAL; WHITE BLOOD COUNT 5.8 TH/MM3 (4.0-11.0)
[2017-02-18] MEDS: LEVOTHYROXINE SODIUM 50 MCG TAB PO SCH (06:06)
[2017-02-18 06:18] LABS: BICARBONATE 31.7 MEQ/L (21.0-32.0); POTASSIUM 3.8 MEQ/L (3.5-5.1)
--- NOTE | 2017-02-18 07:58 | PD.ORT.PN ---
Subjective Subjective Remarks Patient doing well status post left total knee arthroplasty. No complaints. Pain controlled Objective Vitals Vital Signs Date Time Temp Pulse Resp B/P (MAP) Pulse Ox O2 Delivery O2 Flow Rate FiO2 02/18/17 02:30 Nasal Cannula 2.00 02/17/17 23:55 99.5 83 18 144/65 (91) 94 02/17/17 23:55 18 02/17/17 19:39 99.3 80 18 173/72 (105) 92 02/17/17 16:00 100.5 80 18 178/75 (109) 95 02/17/17 12:00 96.8 78 18 142/68 (92) 97 02/17/17 08:00 97.8 81 18 189/77 (114) 94 I/O 02/17/17 02/17/17 02/17/17 02/18/17 02/18/17 02/18/17 07:00 15:00 23:00 07:00 15:00 23:00 Intake Total 480 ml 1440 ml 360 ml 480 ml Output Total 1400 ml 275 ml Balance 480 ml 40 ml 85 ml 480 ml Intake Oral 480 ml 1440 ml 360 ml 480 ml Output Urine Total 1400 ml 275 ml # Voids 4 4 3 # Bowel Movements 0 1 0 0 Result Diagram: 02/18/17 0531 02/18/17 0531 Objective Remarks Left lower extremity--NVI knee immobilizer in place Calves soft Assessment & Plan Assessment and Plan s/p L TKA POD#4 physical therapy - wbat daily dressing changes lovenox d/c planning - snf vs home rx in chart 3004 signed f/up dr. rao 2 weeks Julito Keene MD Feb 18, 2017 07:58
[2017-02-18 08:00] VITALS: BP 134/63; PULSE 79; RESP 17; TEMP 96; O2SAT 91
[2017-02-18] MEDS: SODIUM CHLOR 0.9% 1000 ML INJ 1,000 ML IV SCH ×2 (08:59→19:00)
[2017-02-18] MEDS: TIOTROPIUM BROMIDE 18 MCG INH INH SCH (09:00)
[2017-02-18] MEDS: SODIUM CHLORIDE 0.9% FLUSH 10 ML FLUSH IV FLUSH SCH ×2 (09:00→22:34)
[2017-02-18] MEDS: GABAPENTIN 300 MG CAP PO SCH ×2 (09:01→22:32)
[2017-02-18] MEDS: DILTIAZEM-CD 120 MG CAP ER PO SCH (09:01)
[2017-02-18] MEDS: MULTIVITAMINS/MINERALS THERAPEUTIC TAB PO SCH ×2 (09:01→22:32)
[2017-02-18] MEDS: DOCUSATE SODIUM 100 MG CAP PO SCH ×2 (09:01→22:33)
[2017-02-18] MEDS: HYDROCHLOROTHIAZIDE 25 MG TAB PO SCH (09:03)
[2017-02-18] MEDS: ATORVASTATIN 20 MG TAB PO SCH (09:03)
[2017-02-18] MEDS: PANTOPRAZOLE SOD 20 MG DELAYED RELEASE TAB PO SCH (09:03)
[2017-02-18] MEDS: LACTULOSE SYRUP 20 GM/30 ML CUP PO PRN (09:06)
--- NOTE | 2017-02-18 10:09 | HHI.PR ---
Subjective Remarks In the bed, sleepy. No constipation. No sob or wheezing. Pain asi controlled by meds. Objective Vitals Vital Signs Date Time Temp Pulse Resp B/P (MAP) Pulse Ox O2 Delivery O2 Flow Rate FiO2 02/18/17 09:11 Nasal Cannula 2.00 02/18/17 02:30 Nasal Cannula 2.00 02/17/17 23:55 99.5 83 18 144/65 (91) 94 02/17/17 23:55 18 02/17/17 19:39 99.3 80 18 173/72 (105) 92 02/17/17 16:00 100.5 80 18 178/75 (109) 95 02/17/17 12:00 96.8 78 18 142/68 (92) 97 I/O 02/17/17 02/17/17 02/17/17 02/18/17 02/18/17 02/18/17 07:00 15:00 23:00 07:00 15:00 23:00 Intake Total 480 ml 1440 ml 360 ml 480 ml Output Total 1400 ml 275 ml Balance 480 ml 40 ml 85 ml 480 ml Intake Oral 480 ml 1440 ml 360 ml 480 ml Output Urine Total 1400 ml 275 ml # Voids 4 4 3 # Bowel Movements 0 1 0 0 Result Diagram: 02/18/1753002/18/17530 Objective Remarks GENERAL: This is a pleasant well-nourished, well-developed patient, in no apparent distress. SKIN: No rashes, ecchymoses or lesions. Cool and dry. HEAD: Atraumatic. Normocephalic. EYES: No scleral icterus. No injection or drainage. ENT: Nose without bleeding, purulent drainage. NECK: Trachea midline. No JVD. CARDIOVASCULAR: Regular rate and rhythm without murmurs, gallops, or rubs. RESPIRATORY: Clear to auscultation. Breath sounds diminished at bases but equal bilaterally. No wheezes, rales, or rhonchi. GASTROINTESTINAL: Abdomen soft, non-tender, nondistended. No guarding. MUSCULOSKELETAL: Extremities without clubbing, cyanosis, or edema. SCDs in place. NEUROLOGICAL: Awake and alert. Motor and sensory grossly within normal limits. Normal speech. A/P Problem List: (1) COPD (chronic obstructive pulmonary disease) ICD Code: J44.9 - Chronic obstructive pulmonary disease, unspecified Status: Chronic (2) Hypertension ICD Code: I10 - Essential (primary) hypertension Status: Chronic (3) Total knee replacement status ICD Code: Z96.659 - Presence of unspecified artificial knee joint (4) GERD (gastroesophageal reflux disease) ICD Code: K21.9 - Gastro-esophageal reflux disease without esophagitis Status: Chronic (5) Hyperlipidemia ICD Code: E78.5 - Hyperlipidemia, unspecified Status: Chronic Assessment and Plan 87y/o s/p L TKA for left knee osteoarthritis: COPD without exacerbation Resume home medications Duo nebulizers every 4 hours when necessary for shortness of breath/wheezing Incentive spirometry to prevent atelectasis/pneumonia Supplemental oxygen titrated to maintain oxygen saturation > 92% If any significant respiratory decompensation, consider consulting patient's hoistman Dr. Camacho Hypertension Resume home medications Monitor trends in blood pressure readings and adjust therapy if needed Hyperlipidemia Resume home medications GERD resume home medications Constipation. Resolved. Continue bowel regimen. MOM and lactulose as need for moderate to severe constipation. Status post left total knee arthroplasty Management per Dr. Garcia Analgesic regimen effective per patient DVT prophylaxis Bilateral SCDs Lovenox 30 mg every 24 hours subcutaneously Discussed Condition With patient, nurse Cleared medically for DC Problem Qualifiers (1) Total knee replacement status: Qualified Codes: Z96.652 - Presence of left artificial knee joint Terese Mendez MD Feb 18, 2017 10:09
[2017-02-18] MEDS: ACETAMINOPHEN/HYDROcodone 325 MG/7.5 MG TAB PO PRN ×3 (11:10→22:32)
[2017-02-18 12:00] VITALS: BP 140/68; PULSE 73; RESP 17; TEMP 98.1; O2SAT 94
[2017-02-18 16:00] VITALS: BP 140/64; PULSE 69; RESP 17; TEMP 99.7; O2SAT 94
[2017-02-18 17:48] VITALS: O2SAT 94
[2017-02-18 20:35] VITALS: BP 132/62; PULSE 69; RESP 17; TEMP 97.5; O2SAT 94
[2017-02-18] MEDS: ENOXAPARIN SODIUM 30 MG/0.3 ML SYRINGE SQ SCH (22:33)
[2017-02-19] VITALS (8 sets, daily range): BP systolic 136–193; BP diastolic 54–83; PULSE 71–91; RESP 15–18; TEMP 97.4–100.8; O2SAT 92–97
[2017-02-19] MEDS: SODIUM CHLOR 0.9% 1000 ML INJ 1,000 ML IV SCH ×2 (05:00→20:03)
[2017-02-19] MEDS: LEVOTHYROXINE SODIUM 50 MCG TAB PO SCH (06:57)
--- NOTE | 2017-02-19 08:07 | PD.ORT.PN ---
Subjective Post Op Day #: 4 Subjective Remarks sx Saturday, L TKA doing well. pain under control. Objective Vitals Vital Signs Date Time Temp Pulse Resp B/P (MAP) Pulse Ox O2 Delivery O2 Flow Rate FiO2 02/19/17 00:45 98.2 71 17 167/73 (104) 96 02/18/17 20:35 97.5 69 17 132/62 (85) 94 02/18/17 17:48 94 21 02/18/17 16:00 99.7 69 17 140/64 (89) 94 02/18/17 12:00 98.1 73 17 140/68 (92) 94 02/18/17 09:11 Nasal Cannula 2.00 02/18/17 08:35 21 I/O 02/18/17 02/18/17 02/18/17 02/19/17 02/19/17 02/19/17 07:00 15:00 23:00 07:00 15:00 23:00 Intake Total 480 ml 600 ml 480 ml 120 ml Balance 480 ml 600 ml 480 ml 120 ml Intake Oral 480 ml 600 ml 480 ml 120 ml # Voids 3 3 1 1 # Bowel Movements 0 0 0 0 Result Diagram: 02/18/1731 02/18/17 0531 Objective Remarks in bed, nad incision c/d/i neg homans nvi Assessment & Plan Ortho Post Op Day #: 4 Problem List: Assessment and Plan s/p L TKA POD#4 physical therapy - wbat daily dressing changes lovenox d/c planning - snf - cleared today rx in chart 3007 signed f/up dr. rao 2 weeks Paul Baxter Feb 19, 2017 08:07
[2017-02-19] MEDS: DILTIAZEM-CD 120 MG CAP ER PO SCH (09:00)
[2017-02-19] MEDS: SODIUM CHLORIDE 0.9% FLUSH 10 ML FLUSH IV FLUSH SCH ×2 (09:00→20:02)
[2017-02-19] MEDS: TIOTROPIUM BROMIDE 18 MCG INH INH SCH (09:00)
[2017-02-19] MEDS: HYDROCHLOROTHIAZIDE 25 MG TAB PO SCH (09:05)
[2017-02-19] MEDS: ATORVASTATIN 20 MG TAB PO SCH (09:06)
[2017-02-19] MEDS: GABAPENTIN 300 MG CAP PO SCH ×2 (09:06→20:02)
[2017-02-19] MEDS: MULTIVITAMINS/MINERALS THERAPEUTIC TAB PO SCH ×2 (09:06→20:02)
[2017-02-19] MEDS: PANTOPRAZOLE SOD 20 MG DELAYED RELEASE TAB PO SCH (09:06)
[2017-02-19] MEDS: DOCUSATE SODIUM 100 MG CAP PO SCH ×2 (09:06→20:02)
[2017-02-19] MEDS: ACETAMINOPHEN/HYDROcodone 325 MG/7.5 MG TAB PO PRN ×2 (09:08→20:01)
--- NOTE | 2017-02-19 10:19 | HHI.PR ---
Subjective Remarks Ambulating with PT in the hallways. Now back in the room. Says she feels slightly siob, however at baseline. She is not wheezing. She is using 3L NC at home. No fever ro chills. No cough. No wheezing. Pain is controlled. No n/v/d/ c. + constipation x 3 days Objective Vitals Vital Signs Date Time Temp Pulse Resp B/P (MAP) Pulse Ox O2 Delivery O2 Flow Rate FiO2 02/19/17 00:45 98.2 71 17 167/73 (104) 96 02/18/17 20:35 97.5 69 17 132/62 (85) 94 02/18/17 17:48 94 21 02/18/17 16:00 99.7 69 17 140/64 (89) 94 02/18/17 12:00 98.1 73 17 140/68 (92) 94 I/O 02/18/17 02/18/17 02/18/17 02/19/17 02/19/17 02/19/17 07:00 15:00 23:00 07:00 15:00 23:00 Intake Total 480 ml 600 ml 480 ml 120 ml Balance 480 ml 600 ml 480 ml 120 ml Intake Oral 480 ml 600 ml 480 ml 120 ml # Voids 3 3 1 1 # Bowel Movements 0 0 0 0 Result Diagram: 02/18/17 0531 02/18/17 0531 Imaging Last Impressions Knee X-Ray 02/15/17 0700 Signed Impressions: Service Date/Time: Wednesday, February 15, 2017 10:39 - CONCLUSION: Status post total knee arthroplasty. Leighton Tejeda MD Objective Remarks GENERAL: This is a pleasant well-nourished, well-developed patient, in no apparent distress. SKIN: No rashes, ecchymoses or lesions. Cool and dry. HEAD: Atraumatic. Normocephalic. EYES: No scleral icterus. No injection or drainage. ENT: Nose without bleeding, purulent drainage. NECK: Trachea midline. No JVD. CARDIOVASCULAR: Regular rate and rhythm without murmurs, gallops, or rubs. RESPIRATORY: Clear to auscultation. Breath sounds diminished at bases but equal bilaterally. No wheezes, rales, or rhonchi. GASTROINTESTINAL: Abdomen soft, non-tender, nondistended. No guarding. MUSCULOSKELETAL: Extremities without clubbing, cyanosis, or edema. SCDs in place. NEUROLOGICAL: Awake and alert. Motor and sensory grossly within normal limits. Normal speech. A/P Problem List: (1) COPD (chronic obstructive pulmonary disease) ICD Code: J44.9 - Chronic obstructive pulmonary disease, unspecified Status: Chronic (2) Hypertension ICD Code: I10 - Essential (primary) hypertension Status: Chronic (3) Total knee replacement status ICD Code: Z96.659 - Presence of unspecified artificial knee joint (4) GERD (gastroesophageal reflux disease) ICD Code: K21.9 - Gastro-esophageal reflux disease without esophagitis Status: Chronic (5) Hyperlipidemia ICD Code: E78.5 - Hyperlipidemia, unspecified Status: Chronic Assessment and Plan 87y/o s/p L TKA for left knee osteoarthritis: COPD without exacerbation Resume home medications Duo nebulizers every 4 hours when necessary for shortness of breath/wheezing Incentive spirometry to prevent atelectasis/pneumonia Supplemental oxygen titrated to maintain oxygen saturation > 92% If any significant respiratory decompensation, consider consulting patient's gear finisher Dr. Camacho Hypertension Resume home medications Monitor trends in blood pressure readings and adjust therapy if needed Hyperlipidemia Resume home medications GERD resume home medications Constipation. Resolved. Continue bowel regimen. MOM and lactulose as need for moderate to severe constipation. Status post left total knee arthroplasty Management per Dr. Garcia Analgesic regimen effective per patient DVT prophylaxis Bilateral SCDs Lovenox 30 mg every 24 hours subcutaneously Discussed Condition With patient, nurse Cleared medically for DC . DC to SNF. Case management follow for DC plan Problem Qualifiers (1) Total knee replacement status: Qualified Codes: Z96.652 - Presence of left artificial knee joint Terese Mendez MD Feb 19, 2017 10:19
[2017-02-20] MEDS: ENOXAPARIN SODIUM 30 MG/0.3 ML SYRINGE SQ SCH (01:34)
[2017-02-20] MEDS: ACETAMINOPHEN/HYDROcodone 325 MG/7.5 MG TAB PO PRN ×2 (01:43→11:44)
[2017-02-20] MEDS: LEVOTHYROXINE SODIUM 50 MCG TAB PO SCH (06:00)
[2017-02-20 08:00] VITALS: BP 151/62; PULSE 88; RESP 18; TEMP 97.8; O2SAT 94
--- NOTE | 2017-02-20 08:03 | PD.ORT.PN ---
Subjective Post Op Day #: 5 Subjective Remarks sx Saturday, L TKA doing well. pain under control. waiting to go to snf. Objective Vitals Vital Signs Date Time Temp Pulse Resp B/P (MAP) Pulse Ox O2 Delivery O2 Flow Rate FiO2 02/19/17 23:54 98.9 80 15 167/76 (106) 96 02/19/17 19:00 100.8 89 17 165/78 (107) 97 02/19/17 18:03 93 Nasal Cannula 2.00 02/19/17 16:00 100.8 91 18 162/64 (96) 93 02/19/17 12:00 97.6 86 17 136/54 (81) 96 02/19/17 08:45 92 Nasal Cannula 2.00 I/O 02/19/17 02/19/17 02/19/17 02/20/17 02/20/17 02/20/17 07:00 15:00 23:00 07:00 15:00 23:00 Intake Total 120 ml 600 ml 480 ml 240 ml Balance 120 ml 600 ml 480 ml 240 ml Intake Oral 120 ml 600 ml 480 ml 240 ml # Voids 1 3 3 4 # Bowel Movements 0 0 0 0 Result Diagram: 02/18/1753002/18/17 0531 Objective Remarks in bed, nad dressing c/d/i neg homans nvi Assessment & Plan Ortho Post Op Day #: 5 Problem List: Assessment and Plan s/p L TKA POD#5 physical therapy - wbat daily dressing changes lovenox OOB and IS d/c planning - snf - cleared when bed available rx in chart 3004 signed f/up dr. rao 2 weeks Paul Baxter Feb 20, 2017 08:03
--- NOTE | 2017-02-20 09:08 | HHI.PR ---
Subjective Remarks In bed, ate breakfast. Feesl tired, but will go for a walk with PT. Pain is controlled by meds. Has constipation. No and pain , n/v/. No fever ro chills. SOB at baseline. she is not wheezing. She gets more sob after PT. Objective Vitals Vital Signs Date Time Temp Pulse Resp B/P (MAP) Pulse Ox O2 Delivery O2 Flow Rate FiO2 02/19/17 23:54 98.9 80 15 167/76 (106) 96 02/19/17 19:00 100.8 89 17 165/78 (107) 97 02/19/17 18:03 93 Nasal Cannula 2.00 02/19/17 16:00 100.8 91 18 162/64 (96) 93 02/19/17 12:00 97.6 86 17 136/54 (81) 96 I/O 02/19/17 02/19/17 02/19/17 02/20/17 02/20/17 02/20/17 07:00 15:00 23:00 07:00 15:00 23:00 Intake Total 120 ml 600 ml 480 ml 240 ml Balance 120 ml 600 ml 480 ml 240 ml Intake Oral 120 ml 600 ml 480 ml 240 ml # Voids 1 3 3 4 # Bowel Movements 0 0 0 0 Result Diagram: 02/18/1753002/18/17530 Objective Remarks GENERAL: This is a pleasant well-nourished, well-developed patient, in no apparent distress. SKIN: No rashes, ecchymoses or lesions. Cool and dry. HEAD: Atraumatic. Normocephalic. EYES: No scleral icterus. No injection or drainage. ENT: Nose without bleeding, purulent drainage. NECK: Trachea midline. No JVD. CARDIOVASCULAR: Regular rate and rhythm without murmurs, gallops, or rubs. RESPIRATORY: Clear to auscultation. Breath sounds diminished at bases but equal bilaterally. No wheezes, rales, or rhonchi. GASTROINTESTINAL: Abdomen soft, non-tender, nondistended. No guarding. MUSCULOSKELETAL: Extremities without clubbing, cyanosis, or edema. SCDs in place. NEUROLOGICAL: Awake and alert. Motor and sensory grossly within normal limits. Normal speech. A/P Problem List: (1) COPD (chronic obstructive pulmonary disease) ICD Code: J44.9 - Chronic obstructive pulmonary disease, unspecified Status: Chronic (2) Hypertension ICD Code: I10 - Essential (primary) hypertension Status: Chronic (3) Total knee replacement status ICD Code: Z96.659 - Presence of unspecified artificial knee joint (4) GERD (gastroesophageal reflux disease) ICD Code: K21.9 - Gastro-esophageal reflux disease without esophagitis Status: Chronic (5) Hyperlipidemia ICD Code: E78.5 - Hyperlipidemia, unspecified Status: Chronic Assessment and Plan 87y/o s/p L TKA for left knee osteoarthritis: COPD without exacerbation Resume home medications Duo nebulizers every 4 hours when necessary for shortness of breath/wheezing Incentive spirometry to prevent atelectasis/pneumonia Supplemental oxygen titrated to maintain oxygen saturation > 92% If any significant respiratory decompensation, consider consulting patient's work distributor Dr. Camacho Hypertension Resume home medications Monitor trends in blood pressure readings and adjust therapy if needed Hyperlipidemia Resume home medications GERD resume home medications Constipation. Resolved. Continue bowel regimen. MOM and lactulose as need for moderate to severe constipation. Status post left total knee arthroplasty Management per Dr. Garcia Analgesic regimen effective per patient DVT prophylaxis Bilateral SCDs Lovenox 30 mg every 24 hours subcutaneously Discussed Condition With patient, nurse Cleared medically for DC . DC to SNF. Case management follow for DC plan Problem Qualifiers (1) Total knee replacement status: Qualified Codes: Z96.652 - Presence of left artificial knee joint Terese Mendez MD Feb 20, 2017 09:07
[2017-02-20] MEDS: MULTIVITAMINS/MINERALS THERAPEUTIC TAB PO SCH (09:47)
[2017-02-20] MEDS: HYDROCHLOROTHIAZIDE 25 MG TAB PO SCH (09:47)
[2017-02-20] MEDS: LACTULOSE SYRUP 20 GM/30 ML CUP PO PRN (09:47)
[2017-02-20] MEDS: SODIUM CHLORIDE 0.9% FLUSH 10 ML FLUSH IV FLUSH SCH (09:48)
[2017-02-20] MEDS: PANTOPRAZOLE SOD 20 MG DELAYED RELEASE TAB PO SCH (09:48)
[2017-02-20] MEDS: ATORVASTATIN 20 MG TAB PO SCH (09:48)
[2017-02-20] MEDS: GABAPENTIN 300 MG CAP PO SCH (09:48)
[2017-02-20] MEDS: DOCUSATE SODIUM 100 MG CAP PO SCH (09:48)
[2017-02-20] MEDS: DILTIAZEM-CD 120 MG CAP ER PO SCH (09:48)
[2017-02-20] MEDS: TIOTROPIUM BROMIDE 18 MCG INH INH SCH (09:49)
[2017-02-20] MEDS: SODIUM CHLOR 0.9% 1000 ML INJ 1,000 ML IV SCH (11:00)
[2017-02-20 12:00] VITALS: BP 142/66; PULSE 87; RESP 17; TEMP 95.8; O2SAT 90
[2017-02-20 14:30] VITALS: O2SAT 96
[2017-02-20 16:00] VITALS: BP 128/64; PULSE 82; RESP 17; TEMP 98.9; O2SAT 94
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
== END 2017-02-20 17:12 | DRG 470 ==
LOC: HSDI 05:11 → N06B 13:39
PROVIDERS: ADMIT Orthopaedic Surgery Sports Medicine; ATTEND Orthopaedic Surgery Sports Medicine
PROC: 3E0T3CZ (ICD-10-PCS; 2017-02-15)
PROC: 0SRD0J9 Replacement of Left Knee Joint with Synthetic Substitute, Cemented, Open Approach (ICD-10-PCS; principal; 2017-02-15 08:15)
DX: M17.12 Unilateral primary osteoarthritis, left knee (principal); J44.9 Chronic obstructive pulmonary disease, unspecified; I10 Essential (primary) hypertension; E78.5 Hyperlipidemia, unspecified; K21.9 Gastro-esophageal reflux disease without esophagitis; K22.70 Barrett's esophagus without dysplasia; K59.00 Constipation, unspecified; Z87.891 Personal history of nicotine dependence
CPT/HCPCS: 73560; 80048; 85027; 86850; 86900; 86901; 93005; 94150; C1776; C9290; J0131; J0171; J0690; J0735; J1100; J1580; J1650; J1885; J2250; J2270; J2405; J2710; J2795; J3010; J3370; J7030; J7050; J7120; L1830